=== PATIENT | male | born 1940 | race Caucasian/White ===

== ENCOUNTER 2020-05-07 21:43 | Inpatient (IN) | payer MEDICARE, OTHER, MEDICAID ==
[~2020-05-07] VITALS: Ht 38 cm; Wt 68.0 kg
[2020-05-07] MEDS ORDERED: AMLODIPINE BESYL5 MG PO (22:03)
[2020-05-07] MEDS ORDERED: DONEPEZIL HYDROC5 MG PO (22:05)
[2020-05-07] MEDS ORDERED: FINASTERIDE5 M1 PO (22:06)
[2020-05-07] MEDS ORDERED: FUROSEMIDE40 MG PO (22:08)
[2020-05-07] MEDS ORDERED: IMDUR SA30 MG PO (22:09)
[2020-05-07] MEDS ORDERED: ESCITALOPRAM OX10 MG PO (22:16)
[2020-05-07] MEDS ORDERED: LISINOPRIL10 M1 PO (22:18)
[2020-05-07] MEDS ORDERED: LOVASTATIN40 MG PO (22:19)
[2020-05-07] MEDS ORDERED: WARFARIN SODIUM5 MG PO (22:44)
[2020-05-07] MEDS ORDERED: OMEPRAZOLE MAGN20 MG PO (22:45)
[2020-05-07] MEDS ORDERED: GABAPENTIN100 M2 PO (22:49)
[2020-05-07] MEDS ORDERED: METOPROLOL TART50 M1 PO (22:51)
[2020-05-07] MEDS ORDERED: METFORMIN HYDR500 MG PO (22:52)
[2020-05-07] MEDS ORDERED: LEVEMIR100 UNIT/1 SC (22:53)
[2020-05-07] MEDS ORDERED: NOVOLOG FL100 UNIT/2 SQ (22:58)
--- NOTE | 2020-05-08 09:45 | NUR ---
COVID SWAB COMPLETED. PT TOLERATED WELL.
--- NOTE | 2020-05-08 09:53 | NUR ---
MESSAGE LEFT FOR STEVO PEÑALOZA REGARDING NEW PT
--- NOTE | 2020-05-08 10:01 | NUR ---
MAIN BHAT JR a 79 year old M admitted via ambulance from the ADMITTING as a voluntary admission. Arrived on unit at 0932. ALLERGIES: NKA. The POA GAVE VERBAL CONSENT FOR the following forms with stated understanding: Authorization For The Release of Medical Information, Clothing List, Consent to Voluntary Admission and Hospitalization, Consent and Release Forms/Receipt of Rights, Acknowledgement of Advance Directive Information, Behavioral Health Consent Form, and Informed Consent of Medications. Admitted under the services of Dr. LINDSAY MCKEON,[facility]. A search was conducted and hazardous articles were removed. Client was oriented to the unit. SAUL VANCE
--- NOTE | 2020-05-08 10:40 | NUR ---
DR MORALES ON UNIT TO ASSESS PATIENT, UPDATE PROVIDED.
[2020-05-08 10:52] VITALS: BP 141/72
[2020-05-08 11:36] VITALS: BP 141/72
--- NOTE | 2020-05-08 16:24 | NUR ---
DURING SKIN ASSESSMENT WHITE AREAS WERE NOTED BETWEEN DIGITS ON BILATERAL FEET. DRY FLAKY SKIN ALSO NOTED IN AREAS. LARGE PIECES OF DRY SKIN FALLING OFF HIS BILATERAL FEET WERE NOTED DURING SKIN ASSESSMENT. FEET HAD A FOWL ODOR. TOE NAILS WERE LARGE, OVERGROWN, AND YELLOW. LEFT 4TH DIGIT WAS DISPLACED OVER THE 3RD DIGIT ON FOOT. MULTIPLE SCABS NOTED TO BILATERAL LOWER LEGS. MULITPLE BRUISES NOTED TO BILATERAL ARMS WITH VARYING HEALING STAGES. PURPLE BRUISE NOTED TO TOP OF LEFT HAND. PURPLE BRUISE NOTED TO RAC. A LIGHT PURPLE AREA TO TOP OF LEFT SIDE OF HEAD WAS NOTED. A SCAR WAS NOTED WAS NOTED TO UPPER MID BACK. INNER BUTTOCKS WAS RED BUT BLANCHABLE. PT WAS SHOWERED AT THIS TIME. MADE AWARE OF AREAS AND ORDERED A PODIATRY CONSULT DUE TO DIAGNOSIS OF DIABETES. WOUND CARE NURSE, NAHED, WAS NOTIFIED OF AREAS. WOUND PICTURES OBTAINED.
[2020-05-08 20:00] VITALS: BP 132/72
--- NOTE | 2020-05-08 22:59 | NUR ---
Patient alert and oriented to person only with confusion noted. Mood is calm with underlying irritability noted. Patient denies any SI/HI or hallucinations. Patient said " I have been living here for 4 years,and for 30 years I have saved my money for senior living. Do you want to know how much this place charges me. They charge me $800.00 dollars per day and that's the truth." Patient compliant with HS medications without any difficulty. Provided 1:1 for emotional support and therapeutic communication. Redirected/reoriented when needed. Plan to continue to encourage medication compliance. Also continue to provide emotional support,therapeutic communication,and redirect/reorient when needed/appropriate. Will also monitor moods/behaviors. Q 15 minute safety checks continued and maintained. See [facility] flowsheet for further documentation.
--- NOTE | 2020-05-09 05:57 | NUR ---
Patient slept approx. 6 hours with a few awakenings throughout shift. Q 15 minute safety checks continued and maintained.
[2020-05-09 06:32] LABS: BASO % 0.3 % (0.0-1.0); EOS # 0.1 10*3/uL (0.0-0.4); EOS % 1.8 % (1.0-4.0); HEMATOCRIT 31.9 % (42.0-52.0); LYMPH # 1.4 10*3/uL (1.3-4.4); LYMPH % 17.5 % (27.0-41.0); MEAN CELL VOLUME 75.6 fl (80.0-94.0); MEAN CORPUSCULAR HGB 22.5 pg (27.0-31.0); MEAN CORPUSCULAR HGB CONC 29.8 g/dl (33.0-37.0); MEAN PLATELET VOLUME 11.9 fl (9.6-12.3); MONO # 0.7 10*3/uL (0.1-1.0); MONO % 8.6 % (3.0-9.0); NEUT # 5.5 10*3/uL (2.3-7.9); NEUT % 71.5 % (47.0-73.0); PLATELET COUNT AUTOMATED 266 10*3/uL (130-400); RED BLOOD COUNT 4.22 10*6/uL (4.50-5.90); WHITE BLOOD COUNT 7.8 10*3/uL (4.8-10.8)
[2020-05-09 06:41] VITALS: BP 121/52
[2020-05-09 06:52] LABS: ALBUMIN 3.1 gm/dl (3.1-4.5); ALKALINE PHOSPHATASE 69 U/L (45-117); BUN 17 mg/dl (7-24); CHLORIDE 109 mmol/L (98-107); CHOLESTEROL 142 mg/dL (<200); CREATININE 0.85 mg/dL (0.70-1.30); HDL CHOLESTEROL 45 mg/dl (40-60); LDL CHOLESTEROL 76 mg/dL (9-159); POTASSIUM 4.1 mmol/L (3.5-5.1); SGOT/AST 26 IU/L (3-35); SGPT/ALT 20 U/L (12-78); SODIUM 143 mmol/L (136-145); TOTAL PROTEIN 6.7 gm/dL (6.4-8.2); TRIGLYCERIDES 105 mg/dl (<150); VLDL CHOLESTEROL 21 mg/dL (6-40)
[2020-05-09 08:10] LABS: VITAMIN D, 25-HYDROXY 41.5 ng/mL (30-100)
--- NOTE | 2020-05-09 09:09 | NUR ---
DR CROCKETT ON UNIT TO ASSESS PATIENT, UPDATE GIVEN.
--- NOTE | 2020-05-09 14:42 | NUR ---
CALL PLACED TO [facility], SPOKE WITH TROY RE: PT'S URINE CULTURE IN ATTEMPT TO OBTAIN C&S. PER TROY URINE CULTURE STILL PENDING OF THIS TIME. WILL CALL BACK TOMORROW.
--- NOTE | 2020-05-09 15:25 | NUR ---
SPOKE WITH RE: ELEVATED INR 4.0. MADE AWARE PT DUE TO RECIEVE COUMADIN 5MG PO TONIGHT. PT HAS DX ATRIAL FIB. STATES TO HOLD TONIGHT'S DOSE OF COUMADIN. REPEAT PT/INR IN THE AM.
--- NOTE | 2020-05-09 15:29 | NUR ---
P- SLIGHTLY IRRITABLE THIS AM REGARDING WANTING HIS SHOES. IRRITABILITY RESOLVED. PT EPISODICALLY NONCOMPLIANT WITH FALL RISK PRECAUTIONS. NO OTHER ADVERSE MOODS OR BEHAVIORS NOTED. I- ORIENTATION, MOOD AND BEHAVIORS ASSESSED. ASSESSED PT FOR SI/HI, INTENT OR PLAN. ASSESSED PT FOR S/S HALLUCINATIONS, PARANOIA AND/OR DELUSIONS. MEDICATIONS ADMINISTERED PER PHYSICIAN'S ORDERS. ASSISTANCE WITH ADL CARE PROVIDED NEEDED. ENCOURAGED PT TO ATTEND AND PARTICIPATE IN [facility] GROUPS AND ACTIVITIES. ENCOURAGED PT TO ADHERE TO FALL RISK PRECAUTIONS, EDUCATION PROVIDED. R- PT IS ALERT AND ORIENTED TO PERSON ONLY. OTHERWISE PLEASANTLY CONFUSED. ST/LT MEMORY GAPS NOTED. RESPS EASY AND EVEN ON ROOM AIR. PT NOTED SLIGHTLY IRRITABLE THIS AM D/T WANTING HIS SHOES. SHOE LACES REPLACED WITH ZIP TIES SO PT COULD WEAR SHOES AND IRRIABILITY HAS RESOLVED. MOOD HAS BEEN OTHERWISE STABLE. AFFECT FLAT. SPEECH NOTED WITH SIGNIFICANT STUTTER BUT ABLE TO MAKE NEEDS KNOWN AND COMMUNICATE EFFECTIVELY. PT DENIES SI/HI, INTENT OR PLAN. PT DENIES HALLUCINATIONS, NO RESPONSE TO INTERNAL STIMULI NOTED. NO PARANOIA OR DELUSIONS NOTED. PT HAS BEEN CALM AND COOPERATIVE. NO AGGRESSIVE BEHAVIORS DISPLAYED. NO SEXUALLY INAPPROPRIATE BEHAVIORS NOTED. NO EXIT SEEKING. PT IS MEDICATION COMPLIANT WITHOUT DIFFICULTY. PT IS EPISODICALLY NONCOMPLIANT WITH FALL RISK PRECAUTIONS. FREQUENT REMINDERS AND EDUCATION PROVIDED. NO DISTRESS NOTED. P- PLAN TO CONTINUE CURRENT TREATMENT. CONTINUE TO MONITOR MOOD AND BEHAVIORS, PROVIDE APPROPRIATE REORIENTATION AND REDIRECTION NEEDED. CONTINUE TO ENCOURAGE MEDICATION COMPLIANCE WELL GROUP ATTENDANCE AND PARTICIPATION. ENCOURAGE ADHERENCE TO FALL PRECUATIONS.
[2020-05-09 19:47] VITALS: BP 96/47
--- NOTE | 2020-05-09 21:42 | NUR ---
Patient alert and oriented to person only with confusion noted. Mood is calm and cooperative. Patient is intermittently non-compliant with fall precaution safety. Patient denies any SI/HI or hallucinations. No overt s/s of any responding to internal stimuli. Patient isolative to his room. Patient compliant with HS medications without any difficulty. Provided 1:1 for emotional support and therapeutic communication. Redirected/reoriented when needed. Plan to continue to encourage medication compliance. Also continue to provide emotional support,therapeutic communication,and redirect/reorient when needed/appropriate. Will also monitor moods/behaviors. Q 15 minute safety checks continued and maintained. See [facility] flowsheet for further documentation.
--- NOTE | 2020-05-09 21:45 | NUR ---
Patient agitated and came out to nurses' desk in his wheelchair. Patient thought it was morning. Redirected/reoriented patient by telling him it was almost ten at night. Offered patient a snack and something to drink but patient refused. Patient then said "I just want to be left alone. How long do I have to be here? Why do you people treat me like a dog by telling what to do and when to do it?" This nurse asked patient what it is that he wants to do. Patient said "I just want to be left alone. Wait,can I have something to drink?" This nurse told him yes and then asked patient what he would like to drink and then gave patient a list of available drinks. Patient said " milk please" This nurse gave patient milk in a cup with a straw. Patient took a few sips and then asked this nurse "did you put anything in this milk?" This nurse told patient no. Patient then continued to drink the milk and watched some TV. Afterwards patient went back to his room in his wheelchair. Will continue to monitor moods/behaviors.
--- NOTE | 2020-05-10 06:13 | NUR ---
Patient slept approx. 5.5 hours with a few awakenings throughout shift. Q 15 minute safety checks continued and maintained.
[2020-05-10 06:53] LABS: INTERNATIONAL NORM RATIO 3.3 (2.0-3.5)
--- NOTE | 2020-05-10 07:46 | NUR ---
PHYSICAL THERAPY Screen received, pt admitted from [facility] for explosive disorder. Please consult PT if pts funcitonal status declines from baseline. Thank you. Kane Smith SPT Rupali Stone PT
[2020-05-10 08:00] VITALS: BP 110/50
--- NOTE | 2020-05-10 08:30 | NUR ---
Treatment Plan meeting was held this a.m. with Dr. Roberson via telephone, SALONI Weeks RN, AT and Coding And Reimbursement Specialist. Plan for discharge Saturday/Saturday. Pt. came to [facility] from [facility]. Will reach out to facility today to discuss discharge Planning.
--- NOTE | 2020-05-10 08:43 | NUR ---
PATIENT INTERACTING WITH PEERS IN DINING ROOM. PATIENT STATES HE IS FEELING "OK". PATIENT IS STABLE, DENIES ANY SADNESS OR DEPRESSION. PATIENT IS ALERT TO SELF. SHORT TERM AND INTERMEDIATE MEMORY DEFECITS. PATIENT IS CONFUSED, BUT IS ABLE TO VOICE NEEDS. PATIENT DENIES ANY HALLUCINATIONS OR DELUSIONS AND DOES NOT APPEAR TO BE RESPONDING TO INTERNAL STIMULI. DURING ASSESSMENT PATIENT IS CALM, INTERACTIVE, AND PARTICIPATING. PATIENT DID STATE THAT "THESE QUESTIONS ARE STUPID". BLOOD PRESSURE MEDICATIONS HELD DUE TO LOW BLOOD PRESSURE. MEDICATION COMPLIANT WITH EDUCATION. Q 15 MINUTE SAFETY CHECKS MAINTAINED. STANDBY ASSIST FOR ACTIVITIES OF DAILY LIVING, CONTINENT OF BOWEL AND BLADDER. SET UP FOR MEALS. INTAKES ARE FAIR WITH ADEQUATE FLUIDS. AMBULATORY WITH UNSTEADY GAIT AND USES WHEELCHAIR. CONTINUE TO MONITOR FOR AGGRESSION, PHYSICAL AND SEXUAL INAPPROPROATENESS, MOOD AND BEHAVIORS. ONE ON ONE PROVIDED FOR EMOTIONAL SUPPORT, PROVIDE SPACE NEEDED, ENCOURAGE TO PARTICIPATE IN GROUP SESSION AND SOCIALIZE WITH OTHERS.
--- NOTE | 2020-05-10 09:10 | NUR ---
DR CROCKETT ON UNIT TO ASSESS PATIENT, UPDATE GIVEN.
--- NOTE | 2020-05-10 10:40 | NUR ---
Spoke with Cielo Ibrahim, Hospital Liason for [facility]. Pt. is Can Stacker Care Resident and will return to facility at discharge. Clinical Updates faxed to Facility.
--- NOTE | 2020-05-10 10:43 | NUR ---
psychosocial hx completed
--- NOTE | 2020-05-10 11:53 | NUR ---
AM GROUP PT ATTENDED MORNING GROUP THERAPY AND SAT AT A TABLE WITH A FEMALE PEER. PT REQUESTED A CUP OF COFFEE BUT DECLINED ANY ACTIVITY, PT WAS CONTENT TO OBSERVE. PT SOON PICKED UP A DECK OF CARDS AND BEGAN PLAYING SOLITAIRE. PT WAS QUIET AND FOCUSED. PT EXHIBITED NO SEXUALLY INAPPROPRIATE BEHAVIORS DURING HIS ASSESSMENT NOR DURING GROUP.
--- NOTE | 2020-05-10 15:24 | NUR ---
Nursing screen received and chart reviewed. Patient admitted from [facility] for intermittent explosive disorder. If patient has a decline in ADLs, transfers, or functional mobility, please send OT orders. Juana Ruby OTR/L
--- NOTE | 2020-05-10 15:43 | NUR ---
PM GROUP PT ATTENDED AFTERNOON GROUP THERAPY AND PARTICIPATED BY PLAYING SOLITAIRE, LISTENING TO MUSIC AND DOING A WORDSEARCH. PT EXHIBITED NO ADVERSE BEHAVIORS WHILE IN GROUP.
[2020-05-10 19:56] VITALS: BP 99/70
--- NOTE | 2020-05-10 23:01 | NUR ---
P-STABLE, CONFUSION I-REDIRECTION WITH 1:1 THERAPEUTIC INTERVENTIONS AND PRESENT REALITY. EDUCATE AND ENCOURAGE MEDICATION COMPLIANCE R-PATIENT MEDICATION COMPLIANT AT HS. PATIENT REFUSED NOURISHMENT AT HS BUT WAS PROVIDED FLUIDS. PATIENT SELF PROPELLING IN WHEELCHAIR ON UNIT AND AT TIMES AMBULATING WITHOUT ASSISTANCE. PATIENT EASILY REDIRECTABLE DURING SHIFT. PATIENT WITH NO HALLUCINATIONS OR DELUSIONS. PATIENT WITH NO HOMICIDAL OR SUICIDAL IDEATIONS. P-CONTINUE TO ENCOURAGE MEDICATION COMPLIANCE, CONTINUE TO PRESENT REALITY, ENCOURAGE GROUP THERAPY WHILE AWAKE
--- NOTE | 2020-05-11 05:49 | NUR ---
PATIENT SLEPT 7 HOURS OF UNINTERRUPTED SLEEP THROUGHOUT SHIFT. Q 15 MINUTE CHECKS MAINTAINED. 24 HR chart check completed.
[2020-05-11 07:35] VITALS: BP 129/50
--- NOTE | 2020-05-11 08:30 | NUR ---
Treatment Plan meeting was held this a.m. with Dr. Roberson via telephone, MULTIPLE RESAW OPERATOR Desi, RN, AT, MARKET RISK ANALYST-S and Office Helper in attendance. plan for discharge Saturday. Pt. will return to [facility] at discharge.
--- NOTE | 2020-05-11 11:12 | NUR ---
AM GROUP PT DID NOT ATTEND MORNING GROUP THERAPY. PT WAS IN BED RESTING.
--- NOTE | 2020-05-11 12:15 | NUR ---
LUICNA CROCKETT CNP ON UNIT TO ASSESS PATIENT.
--- NOTE | 2020-05-11 12:30 | NUR ---
PATIENT IS ALERT TO PERSON AND PLACE WITH CONFUSION, UNABLE TO RECALL TIME, REFERS TO THE PRESIDENT "ASSHOLE" NO ABLE TO RECALL NAME OF PRESIDENT. LONG/SHORT TERM MEMORY DEFICITS NOTED. MOOD IS STABLE. DENIES ANY HALLUCINATIONS, DELUSIONS, HI/SI OR PAIN. NO RESPONSE TO INTERNAL STIMULI. MEDICATION COMPLAINT WITH EDUCATION. Q 15 MINUTE SAFETY CHECKS MAINTAINED. SELF PROPELS IN WHEELCHAIR ON UNIT. 1 PERSON ASSIST WITH ACTIVITIES OF DAILY LIVING, INCONTINENT OF BLADDER, CONTINENT OF BOWEL. SET UP FOR MEALS, INTAKES ARE GOOD WITH ADEQUATE FLUIDS. ASSISTED WITH SHOWER. NO AGGRESSION OR INAPPROPRIATENESS NOTED. CONTINUE TO MONITOR FOR AGGRESSION, SEXUALLY INAPPROPRIATENESS AND OUTBURST. PROVIDE ONE ON ONE, REDIRECTION/ORIENTATION TO REALITY.
--- NOTE | 2020-05-11 15:31 | NUR ---
Shift chart check completed.
[2020-05-11 19:46] VITALS: BP 110/51
--- NOTE | 2020-05-11 20:35 | NUR ---
P-STABLE, CONFUSION I-REDIRECTION WITH 1:1 THERAPEUTIC INTERVENTIONS AND PRESENT REALITY. EDUCATE AND ENCOURAGE MEDICATION COMPLIANCE R-PATIENT MEDICATION COMPLIANT AT HS. PATIENT REFUSED NOURISHMENT AT HS BUT WAS PROVIDED FLUIDS. PATIENT WITH SHORT TERM AND NURSING HOME MEMORY DEFICITS. PATIENT SELF PROPELLING IN WHEELCHAIR ON UNIT AND AT TIMES AMBULATING WITHOUT ASSISTANCE. PATIENT EASILY REDIRECTED DURING SHIFT. PATIENT WITH NO EPISODES OF AGGRESSION OR SEXUAL INAPPROPRIATENESS. PATIENT CALM AND PLEASANT WITH NURSING STAFF AND PEERS. PATIENT WITH NO HALLUCINATIONS OR DELUSIONS. PATIENT WITH NO HOMICIDAL OR SUICIDAL IDEATIONS. P-CONTINUE TO ENCOURAGE MEDICATION COMPLIANCE, CONTINUE TO PRESENT REALITY, ENCOURAGE GROUP THERAPY WHILE AWAKE
--- NOTE | 2020-05-12 06:33 | NUR ---
PATIENT SLEPT 7 HOURS OF UNINTERRUPTED SLEEP THROUGHOUT SHIFT. Q 15 MINUTE CHECKS MAINTAINED. 24 HR chart check completed.
[2020-05-12 06:59] LABS: INTERNATIONAL NORM RATIO 1.3 (2.0-3.5)
[2020-05-12 07:25] VITALS: BP 114/56
--- NOTE | 2020-05-12 09:00 | NUR ---
Treatment Plan meeting was held this a.m. with Dr. Roberson RN, SOLUTION DESIGNER-S and Automatic Brine Mixer Operator. Plan for discharge Saturday. Pt. will return to [facility] at Discharge.
--- NOTE | 2020-05-12 10:38 | NUR ---
DR. PAYNE NOTIFIED OF INR LEVELS, OKAY TO CONTINUE COUMADIN 5MG DAILY AND REVIEWED BLOOD SUGARS WITH INSULIN COVERAGE.
--- NOTE | 2020-05-12 10:52 | NUR ---
PER DR. PAYNE CALLED BACK TO GIVE COUMADIN 5MG PO NOW.
--- NOTE | 2020-05-12 14:50 | NUR ---
Pt pleasant during interactions with this expert medical writer today. Group discussion with pt and another male pt. Discussed simple pleasures of life such as gardening. Pt was appropriate in conversation and interacted well with his peer.
--- NOTE | 2020-05-12 18:48 | NUR ---
PATIENT IS ALERT TO PERSON AND PLACE WITH CONFUSION. LONG/SHORT TERM MEMORY DEFICITS NOTED. MOOD IS STABLE. DENIES ANY HALLUCINATIONS, DELUSIONS, HI/SI OR PAIN. NO RESPONSE TO INTERNAL STIMULI. MEDICATION COMPLAINT WITH EDUCATION. Q 15 MINUTE SAFETY CHECKS MAINTAINED. SELF PROPELS IN WHEELCHAIR ON UNIT. 1 PERSON ASSIST WITH ACTIVITIES OF DAILY LIVING, INCONTINENT OF BLADDER, CONTINENT OF BOWEL. SET UP FOR MEALS, INTAKES ARE GOOD WITH ADEQUATE FLUIDS. ASSISTED WITH SHOWER. NO AGGRESSION OR INAPPROPRIATENESS NOTED. CONTINUE TO MONITOR FOR AGGRESSION, SEXUALLY INAPPROPRIATENESS AND OUTBURST. PROVIDE ONE ON ONE, REDIRECTION/ORIENTATION TO REALITY.
[2020-05-12 20:00] VITALS: BP 126/62
--- NOTE | 2020-05-12 20:11 | NUR ---
24 HR chart check completed.
--- NOTE | 2020-05-12 22:38 | NUR ---
PT HAS REMAINED IN HIS ROOM RESTING IN BED. STABLE MOOD. PLEASANT INTERACTIONS. ALERT TO PERSON & PLACE. REFUSED HS SNACK. HS BEDSIDE GLUCOSE 231. REFUSED HS INSULIN. COMPLAINT WITH OTHER HS MEDICATIONS. NO PHYSICAL COMPLAINTS VOICED.
--- NOTE | 2020-05-13 05:47 | NUR ---
PT HAS SLEPT PAST [id number]
--- NOTE | 2020-05-13 06:39 | NUR ---
AM BEDSIDE GLUCOSE 141
[2020-05-13 07:26] VITALS: BP 137/85
[2020-05-13 07:29] LABS: INTERNATIONAL NORM RATIO 1.2 (2.0-3.5)
[2020-05-13] MEDS ORDERED: RIVASTIGMINE1 EAC2 T (08:15)
[2020-05-13] MEDS ORDERED: CITALOPRAM20 MG PO (08:15)
[2020-05-13] MEDS ORDERED: DIVALPROEX SOD250 MG PO (08:15)
[2020-05-13] MEDS ORDERED: CITALOPRAM10 MG PO (08:19)
--- NOTE | 2020-05-13 08:30 | NUR ---
Treatment Plan meeting was held this a.m. with SALONI Weeks, RN, AT, NAEEM-S and Inductor Tester. Plan for discharge today. Pt. to return to [facility].
--- NOTE | 2020-05-13 08:30 | NUR ---
LUCINA CROCKETT CNP ON UNIT TO ASSESS PATIENT.
--- NOTE | 2020-05-13 10:00 | NUR ---
Discharge Paperwork Faxed to [facility].
--- NOTE | 2020-05-13 10:11 | NUR ---
PATIENT REFUSED SKIN ASSESSMENT AND PICTURES OF FEET.
--- NOTE | 2020-05-13 11:37 | NUR ---
AM GROUP PT ATTENDED MORNING GROUP THERAPY AND SAT AT A TABLE WITH A PEER. PT CHOSE NOT TO PARTICIPATE BUT TO OBSERVE AND LISTEN TO MUSIC. PT EXHIBITED NO ADVERSE BEHAVIORS WHILE IN GROUP. PT IS SET TO BE DISCHARGED FROM THE UNIT TODAY.
--- NOTE | 2020-05-13 12:04 | NUR ---
Pt was very pleasant with this freelance writer during conversation this AM. Pt voiced understanding that he is to discharge today. Pt was appropriate in conversation - no delusions noted.
--- NOTE | 2020-05-13 12:06 | NUR ---
Patient is discharging today to [facility] as intermediate accountant care resident. Follow-up will be with Dr Roberson, visiting psychiatrist. While at [facility], pt did not exhibit inappripriate behavior. Pt was pleasant and cooperative with staff. Pt was appropriate and interactive with his peers. Pt participated in programming.
--- NOTE | 2020-05-13 12:43 | NUR ---
NURSE TO NURSE REPORT GIVEN TO TIA AT [facility]. PT ALERT TO PERSON AND PLACE. PT MED COMPLIANT WITHOUT DIFFICULTY, MED EDUCATION PROVIDED. PT CALM, MOOD IS STABLE. NO AGGRESSIVE OR ASSAULTIVE BEHAVIORS NOTED. PT DENIES ANY SUICIDAL THOUGHTS OR BEHAVIORS. PT AMBULATORY WITH STEADY GAIT SHORT DISTANCES, PT ALSO UTILIZES A WHEELCHAIR A AT TIMES. PT CONTINENT OF BOWEL AND BLADDER. PT REFUSED DISCHARGE WOUND PHOTOS AND ASSESSMENT. PLAN IS TO PREPARE PT TO RETURN TO [facility].
--- NOTE | 2020-05-13 13:15 | NUR ---
LIFE TEAM AMBULANCE SERVICE PRESENT. PATEINT ASSISTED TO [facility]. ALL BELONGING GATHERED AND DISCHARGE INSTRUCTION SENT WITH PATIENT OFF UNIT.
== END 2020-05-13 13:18 | disposition other institution (70) | DRG 883 ==
LOC: 3N 21:43
PROVIDERS: Internal Medicine; Registered Nurse; ADMIT Psychiatry & Neurology Psychiatry; ATTEND Psychiatry & Neurology Psychiatry
DX: F63.81 Intermittent explosive disorder (principal); N39.0 Urinary tract infection, site not specified; I48.91 Unspecified atrial fibrillation; N40.0 Benign prostatic hyperplasia without lower urinary tract symptoms; I25.10 Atherosclerotic heart disease of native coronary artery without angina pectoris; F03.90 Unspecified dementia, unspecified severity, without behavioral disturbance, psychotic disturbance, mood disturbance, and anxiety; K21.9 Gastro-esophageal reflux disease without esophagitis; I10 Essential (primary) hypertension; E78.5 Hyperlipidemia, unspecified; F32.9 Major depressive disorder, single episode, unspecified; E11.40 Type 2 diabetes mellitus with diabetic neuropathy, unspecified; Z20.828 Contact with and (suspected) exposure to other viral communicable diseases; B35.1 Tinea unguium; F39 Unspecified mood [affective] disorder; I25.2 Old myocardial infarction; Z91.02 Food additives allergy status; Z95.5 Presence of coronary angioplasty implant and graft; Z79.899 Other long term (current) drug therapy